=== PATIENT | female | born 1975 | race Caucasian/White ===

== ENCOUNTER 2022-07-09 08:12 | Emergency (ER) | payer OTHER ==
[~2022-07-09] VITALS: Ht 170.2 cm; Wt 56.7 kg
[2022-07-09] MEDS ORDERED: MAGNESIUM250 MG PO (08:29)
[2022-07-09] MEDS ORDERED: CLEOCIN HCL300 MG PO (08:46)
[2022-07-09 08:57] VITALS: BP 115/71
== END 2022-07-09 08:57 | disposition home or self-care (01) ==
LOC: ED 08:12
DX: R68.84 Jaw pain (principal); Z88.0 Allergy status to penicillin; Z88.8 Allergy status to other drugs, medicaments and biological substances; Z79.899 Other long term (current) drug therapy
CPT/HCPCS: 99283

== ENCOUNTER 2022-07-28 17:29 | Emergency (ER) | payer OTHER ==
[~2022-07-28] VITALS: Ht 170.2 cm; Wt 62.3 kg
[~2022-07-28 17:29] MED LIST: CLEOCIN HCL300 MG PO; MAGNESIUM250 MG PO
--- OUTSIDE RECORDS SUMMARY | 2022-07-28 17:30 | XMS ---
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 - 2 Visits in 30 Days - [facility] - 3 Facilities in 90 Days CARE PROVIDERS -, [place]- Dentist: Tr[employer] [facility] PHONE: [phone] Jag has no Care Guidelines for this patient. Xiomara VISIT COUNT (12 MO.) 1 [facility] 1 [facility] 1 [facility] 2 [facility] TOTAL 5 NOTE: Visits indicate total known visits. ED/C VISIT TRACKING (12 MO.) 07/28/2022 17:29 [facility] Lal TYPE: Emergency COMPLAINT: - MOUTH PAIN 07/12/2022 11:56 [facility] [place] TYPE: Emergency DIAGNOSES: - Fracture of mandible, unspecified, subsequent encounter for fracture with routine healing - Jaw pain - DENTAL PAIN [facility]09[facility]22 10:[facility] TYPE: Emergency DIAGNOSES: - Encounter for other specified aftercare - Jaw pain - Jaw Swelling 07/09/2022 08:14 [facility] [place] TYPE: Emergency COMPLAINT: - MOUTH PAIN DIAGNOSES: - Allergy status to other drugs, medicaments and biological substances - Allergy status to penicillin - Jaw pain - Other long term care pharmacist (current) drug therapy 09/08/2021 10:23 [facility] TYPE: Emergency DIAGNOSES: - Cough, unspecified INPATIENT VISIT TRACKING (12 MO.) No inpatient visits to display in this time frame [email or web address]
[2022-07-28] MEDS ORDERED: TRAMADOL HCL50 MG PO (18:05)
[2022-07-28 18:11] VITALS: BP 123/72
== END 2022-07-28 18:11 | disposition home or self-care (01) ==
LOC: ED 17:29
DX: R68.84 Jaw pain (principal); Z76.0 Encounter for issue of repeat prescription; Z88.0 Allergy status to penicillin; Z88.8 Allergy status to other drugs, medicaments and biological substances; Z79.899 Other long term (current) drug therapy
CPT/HCPCS: 99281